=== PATIENT | female | born 1990 | race Caucasian/White ===

== ENCOUNTER → 2016-12-12 | Outpatient (CLI) | payer OTHER ==
[~2016-12-12] MED LIST: /MOM400 PO; ACET50TA PO; ANUS2.5C2 TOP; COLA50CA3 PO; IBUP600T26 PO; PEPC40SU PO; PREN1TAB11 PO
--- NOTE | 2016-12-12 16:19 | REP ---
Clinical: Pelvic pain and IUD placement . Technique: Transabdominal pelvic ultrasound followed by transvaginal examination for better evaluation of the endometrium and adnexa with color Doppler evaluation of the ovaries. Findings: Bladder is under distended and incompletely evaluated. Heterogeneous anteverted uterus measures 7.8 x 3.6 x 6.1 cm . The endometrial complex measures approximately 3.0 mm thickness. No discrete uterine or endometrial abnormalities are appreciated. IUD is identified in central satisfactory location. Bilateral ovaries are normal in appearance and vascularity without evidence for torsion. Right ovary measures 3.2 x 2.7 x 1.9 cm ; R I = 0.35 . Left ovary measures 2.3 x 2.4 x 2.9 cm ; R I = 0.31 . No pelvic fluid or adnexal mass lesion. . Impression: 1. Heterogeneous anteverted uterus with IUD in satisfactory position. 2. Normal bilateral ovaries without torsion. 3. No pelvic fluid. Signed by Cecil Maier MD 12/12/2016 04:10 P
== END ==
LOC: M RAD 15:34
PROVIDERS: ATTEND Nurse Practitioner Women's Health
DX: T83.39XA Other mechanical complication of intrauterine contraceptive device, initial encounter (principal)

== ENCOUNTER → 2016-12-21 | Outpatient (CLI) | payer OTHER ==
[~2016-12-21] VITALS: Ht 175.3 cm; Wt 85.5 kg
[~2016-12-21] MED LIST changes: +DOXY-278 PO; +LIDOCAINE 2% INJ 100 MG/5 ML SDV (FOR ANES.) As Ordered ONE; +NS 1,000 ML IV SCH; +PROPOFOL 200 MG/20 ML VIAL As Ordered ONE; +fentaNYL 100 MCG/2 ML INJECTION (J3010) As Ordered ONE
--- NOTE | 2016-12-21 13:13 | ROOR ---
Patient Name: Luz Serra Procedure Date: 12/21/2016 1:02 PM Date of : 1990 Age: 26 Room: [facility] Gender: Female Note Status: Finalized Procedure: Upper GI endoscopy Indications: Epigastric abdominal pain Providers: Myron CHO MD Referring MD: [facility] [place] [facility]: Medicines: Monitored Anesthesia Care Complications: No immediate complications. Procedure: Pre-Anesthesia Assessment: - The heart rate, respiratory rate, oxygen saturations, blood pressure, adequacy of pulmonary ventilation, and response to care were monitored throughout the procedure. The Endoscope was introduced through the mouth, and advanced to the second part of duodenum. The upper GI endoscopy was accomplished without difficulty. The patient tolerated the procedure well. Findings: The esophagus was normal. The stomach was normal. The examined duodenum was normal. Impression: - Normal esophagus. - Normal stomach. - Normal examined duodenum. - No specimens collected. Recommendation: - Observe patient's clinical course. Myron Cho MD Myron CHO MD 12/21/2016 1:13:17 PM This report has been signed electronically. Number of Addenda: 0 Note Initiated On: 12/21/2016 1:02 PM Estimated Blood Loss: Estimated blood loss: none.
--- NOTE | 2016-12-21 13:26 | ROOR ---
Patient Name: Luz Serra Procedure Date: 12/21/2016 1:03 PM Date of : 1990 Age: 26 Room: [facility] Gender: Female Note Status: Finalized Procedure: Colonoscopy Indications: Generalized abdominal pain, Change in bowel habits, Constipation Providers: Myron CHO MD Referring MD: [facility], [place] Requesting Provider: Medicines: Monitored Anesthesia Care Complications: No immediate complications. Procedure: Pre-Anesthesia Assessment: - The heart rate, respiratory rate, oxygen saturations, blood pressure, adequacy of pulmonary ventilation, and response to care were monitored throughout the procedure. The Colonoscope was introduced through the anus and advanced to 5 cm into the ileum. The colonoscopy was performed without difficulty. The patient tolerated the procedure well. The quality of the bowel preparation was good. Findings: The perianal and digital rectal examinations were normal. (Exam: Complete, Prep: Good or Excellent.) The terminal ileum appeared normal. The entire examined colon appeared normal on direct and retroflexion views. The colon (entire examined portion) was redundant. Impression: - (Exam: Complete, Prep: Good or Excellent.) - The examined portion of the ileum was normal. - The colon is normal on direct and retroflexion views. - No specimens collected. - (Irritable Bowel Syndrome/IBS-C suspected.) Recommendation: - Continue present medications. Myron Cho MD Myron CHO MD 12/21/2016 1:26:25 PM This report has been signed electronically. Number of Addenda: 0 Note Initiated On: 12/21/2016 1:03 PM Estimated Blood Loss: Estimated blood loss: none.
[2016-12-21 13:50] VITALS: BP 123/91
== END | disposition home or self-care (01) ==
LOC: M OPP 11:39
PROVIDERS: ATTEND Internal Medicine Gastroenterology
DX: R19.4 Change in bowel habit (principal); R10.84 Generalized abdominal pain; R10.13 Epigastric pain
CPT/HCPCS: 43235; 45378; J3010

== ENCOUNTER → 2017-04-04 | Outpatient (CLI) | payer OTHER ==
[~2017-04-04] MED LIST changes: -LIDOCAINE 2% INJ 100 MG/5 ML SDV (FOR ANES.) As Ordered ONE; -NS 1,000 ML IV SCH; -PROPOFOL 200 MG/20 ML VIAL As Ordered ONE; -fentaNYL 100 MCG/2 ML INJECTION (J3010) As Ordered ONE
--- NOTE | 2017-04-04 11:53 | REP ---
LEFT ANKLE, FOUR VIEWS: HISTORY: Pain. COMPARISON: 07/10/2016. There is no acute fracture or dislocation. The joint space is normal in appearance. A small osteophyte is present on the inferior aspect of the fibula. IMPRESSION: There is no acute fracture or dislocation. Signed by Joby Ordonez MD 04/04/2017 11:54 A
--- NOTE | 2017-04-04 13:57 | REP ---
LEFT TIBIA/FIBULA, FOUR VIEWS: HISTORY: Leg pain. There is no acute fracture or dislocation. The joint spaces are normal in appearance. IMPRESSION: There is no acute fracture or dislocation. Signed by Joby Ordonez MD 04/04/2017 02:00 P
== END ==
LOC: M LRY 10:09
PROVIDERS: ATTEND Family Medicine
DX: M79.605 Pain in left leg (principal); M25.572 Pain in left ankle and joints of left foot
CPT/HCPCS: 73590; 73610; G0463

== ENCOUNTER → 2017-04-25 | Outpatient (REF) | payer OTHER ==
[2017-04-25 16:52] LABS: MEAN CORPUSCULAR HEMOGLOBIN 31.1 pg (27.0-33.0); MEAN CORPUSCULAR HGB CONC 34.3 g/dl (32.0-36.5); MEAN CORPUSCULAR VOLUME 90.7 fl (80.0-96.0); WHITE BLOOD COUNT 6.6 K/mm3 (4.0-10.0)
[2017-04-25 17:20] LABS: ALBUMIN 3.9 GM/DL (3.2-5.2); ALBUMIN/GLOBULIN RATIO 1.08 (1.00-1.93); ALKALINE PHOSPHATASE 59 U/L (45-117); ALT/SGPT 24 U/L (12-78); ANION GAP 5 MEQ/L (8-16); AST/SGOT 16 U/L (15-37); BILIRUBIN,TOTAL 0.2 MG/DL (0.2-1.0); BLOOD UREA NITROGEN 13 MG/DL (7-18); CARBON DIOXIDE LEVEL 31 MEQ/L (21-32); CHLORIDE LEVEL 105 MEQ/L (98-107); CREATININE FOR GFR 0.65 MG/DL (0.55-1.02); GLOMERULAR FILTRATION RATE > 60.0 (>60); GLUCOSE, FASTING 74 MG/DL (70-105); POTASSIUM SERUM 4.6 MEQ/L (3.5-5.1); SODIUM LEVEL 141 MEQ/L (136-145); TOTAL PROTEIN 7.5 GM/DL (6.4-8.2)
== END ==
LOC: M SFHCLERA 14:44
PROVIDERS: ATTEND Family Medicine
DX: B35.1 Tinea unguium (principal)